=== PATIENT | female | born 1990 | race Caucasian/White ===

== ENCOUNTER 2020-06-23 | Emergency (ER) | payer BC ==
[~2020-06-23] VITALS: Ht 160 cm; Wt 136.4 kg
[2020-06-23 00:05] VITALS: Ht 160 cm; Wt 136.4 kg
[2020-06-23 00:41] LABS: BILIRUBIN NEGATIVE (NEGATIVE); KETONE NEGATIVE (NEGATIVE); NITRITE NEGATIVE (NEGATIVE); UROBILINOGEN NORMAL mg/dL (< 2)
[2020-06-23 00:44] LABS: BASOPHILS 0.1 % (0-2); EOSINOPHILS 1.5 % (0-7); HEMATOCRIT 37.7 % (36.0-48.0); HEMOGLOBIN 12.2 g/dL (12-16); IMMATURE GRANULOCYTES 0.2 % (0-5); LYMPHOCYTES 17.9 % (15-50); MCH 28.5 pg (26.0-34.0); MCHC 32.4 g/dL (31.0-37.0); MCV 88.1 fL (80.0-100.0); MEAN PLATELET VOLUME 9.3 fL (7.4-10.4); MONOCYTES 4.8 % (2-11); NEUTROPHILS 75.5 % (40-80); PLATELET COUNT 259 10x3/uL (130-400); RBC 4.28 10x6/uL (4.00-5.40); RDW 14.2 % (11.5-14.5); WBC 11.7 10x3/uL (4.8-10.8)
[2020-06-23 00:53] LABS: HCG SERUM NEGATIVE (NEGATIVE)
[2020-06-23 00:56] LABS: CALC OSMOLALITY 273 mosm/kg (275-300); CARBON DIOXIDE 27.5 mmol/L (21.0-32.0); CHLORIDE - SERUM 104 mmol/L (98-107); CREATININE - SERUM 0.8 mg/dL (0.6-1.3); GLUCOSE 120 mg/dL (74-106); POTASSIUM - SERUM 3.4 mmol/L (3.5-5.1); SODIUM 137 mmol/L (136-145); UREA NITROGEN 11 mg/dL (7-18); eGFR NON AFRICAN AMERICAN 90 mL/min (90-120)
[2020-06-23 01:01] LABS: ALBUMIN 3.4 g/dL (3.4-5.0); ALKALINE PHOSPHATASE 105 U/L (30-120); ALT (SGPT) 17 U/L (10-68); AMYLASE - SERUM 23 U/L (25-115); BILIRUBIN - TOTAL 0.34 mg/dL (0.2-1.3); LIPASE 91 U/L (73-393); MAGNESIUM - SERUM 1.9 mg/dL (1.8-2.4); PROTEIN - SERUM 7.1 g/dL (6.4-8.2)
[2020-06-23 03:06] VITALS: BP 120/89
== END 2020-06-23 03:03 | disposition home or self-care (01) ==
LOC: D.ER
PROVIDERS: Family Medicine
DX: R10.11 Right upper quadrant pain (principal); K80.20 Calculus of gallbladder without cholecystitis without obstruction